=== PATIENT | male | born 1950 | race Hispanic/Latino ===

== ENCOUNTER 2017-07-04 08:40 | Day surgery (SDC) | payer OTHER ==
[~2017-07-04] VITALS: Ht 167.6 cm; Wt 80.9 kg
[~2017-07-04 08:40] MED LIST: AMLO5TAB2 PO; ASPI-555 PO; LABE100T5 PO; PRAV20TA4 PO; SODIUM CHLORIDE 0.9% 1000ML 1,000 ML IV ONE; VALS320T16 PO
[2017-07-04 09:00] VITALS: BP 155/84
[2017-07-04] MEDS ORDERED: PROPOFOL 10 MG/ML 20ML VIAL IV ONE (11:38)
[2017-07-04 12:14] VITALS: BP 70/29
== END 2017-07-04 13:00 | disposition home or self-care (01) ==
LOC: ENDO 08:40 → DAH 08:40 → ENDO 13:00
PROVIDERS: ATTEND Internal Medicine Gastroenterology
DX: D12.2 Benign neoplasm of ascending colon (principal); D12.3 Benign neoplasm of transverse colon; K29.70 Gastritis, unspecified, without bleeding; R19.5 Other fecal abnormalities; R13.10 Dysphagia, unspecified; B96.81 Helicobacter pylori [H. pylori] as the cause of diseases classified elsewhere; I10 Essential (primary) hypertension; E11.9 Type 2 diabetes mellitus without complications; Z86.73 Personal history of transient ischemic attack (TIA), and cerebral infarction without residual deficits; Z79.899 Other long term (current) drug therapy; Z79.82 Long term (current) use of aspirin; E78.4 Other hyperlipidemia; Z96.652 Presence of left artificial knee joint; Z98.890 Other specified postprocedural states
CPT/HCPCS: 43239; 43248; 45385; 82948 ×2; 88305; 88312; 93005; A4606; J2704; J7030

== ENCOUNTER 2021-12-14 21:02 | Emergency (ER) | payer OTHER ==
[~2021-12-14] VITALS: Ht 162.6 cm; Wt 88.9 kg
[~2021-12-14 21:02] MED LIST changes: +AMLO-257 PO; -AMLO5TAB2 PO; -ASPI-555 PO; +ASPI-556 PO; -LABE100T5 PO; +LABE100T7 PO; -SODIUM CHLORIDE 0.9% 1000ML 1,000 ML IV ONE
[2021-12-14 21:03] VITALS: BP 135/58
== END 2021-12-15 00:13 | disposition home or self-care (01) ==
LOC: EDH 21:02
DX: S01.81XA Laceration without foreign body of other part of head, initial encounter (principal); I10 Essential (primary) hypertension; E11.9 Type 2 diabetes mellitus without complications; Z79.899 Other long term (current) drug therapy; Z79.82 Long term (current) use of aspirin; W01.0XXA Fall on same level from slipping, tripping and stumbling without subsequent striking against object, initial encounter; Y93.89 Activity, other specified; Y92.89 Other specified places as the place of occurrence of the external cause; Y99.8 Other external cause status
CPT/HCPCS: 12015; 70450; 70486; 99282

== ENCOUNTER → 2023-06-21 | Outpatient (CLI) | payer OTHER | END | disposition home or self-care (01) | LOC: RAH 12:29 | PROVIDERS: ATTEND Internal Medicine | DX: R13.19 Other dysphagia (principal) | CPT/HCPCS: 76536 ==

== ENCOUNTER → 2024-12-07 | Outpatient (CLI) | payer OTHER ==
[~2024-12-07] MED LIST changes: -PRAV20TA4 PO; +PRAV20TA59 PO
--- NOTE | 2024-12-08 06:12 | HMCIMG ---
EXAMINATION: ULTRASOUND OF THE URINARY BLADDER. CLINICAL HISTORY: UTI. COMPARISON: No prior studies. TECHNIQUE: Real-time grayscale ultrasound images of the urinary bladder. FINDINGS: Urinary bladder is well distended and normal in caliber with wall thickness (0.31 cm). There are no calculi. Pre-void volume: 350 cc, Post-void volume: 56 cc. The prostate gland is bulky in caliber and measures 4.7 x 4.2 x 3.2 cm in the craniocaudal, AP, and transverse dimensions respectively with a volume of 33 cc. No pelvic ascites. IMPRESSION: Mild prostatic hypertrophy. Significant post-void residue. /Oracio
== END | disposition home or self-care (01) ==
LOC: RAH 09:42
PROVIDERS: ATTEND Internal Medicine
DX: N40.0 Benign prostatic hyperplasia without lower urinary tract symptoms (principal); N39.0 Urinary tract infection, site not specified
CPT/HCPCS: 76857